=== PATIENT | male | born 1975 | race Caucasian/White ===

== ENCOUNTER 2018-05-27 23:17 | Emergency (ER) | payer OTHER ==
[~2018-05-27] VITALS: Ht 180.3 cm; Wt 80.2 kg
[2018-05-27] MEDS ORDERED: LIDOcaine Viscous 15ml cup MM PRN (23:30)
[2018-05-27] MEDS ORDERED: mag hydrox/Alum hydrox/simeth 30ml oral suspension PO ONE (23:30)
[2018-05-27] MEDS ORDERED: sucralfate 1gm/10ml UD suspension PO SCH (23:30)
[2018-05-27 23:54] LABS: BASOPHILS # (AUTO) 0.2 X10'3 (0-0.2); BASOPHILS % (AUTO) 1.6 % (0-1); EOSINOPHILS # (AUTO) 0.3 X10'3 (0-0.9); EOSINOPHILS % (AUTO) 2.8 % (0-6); HEMATOCRIT 47.9 % (42.0-52.0); HEMOGLOBIN 16.4 g/dl (14.0-17.9); LYMPHOCYTES % (AUTO) 25.2 % (21-51); MEAN CORPUSCULAR HEMOGLOBIN 31.4 PG (27.0-31.0); MEAN CORPUSCULAR HGB CONC 34.1 % (33.0-36.5); MEAN CORPUSCULAR VOLUME 92.2 FL (78-98); MEAN PLATELET VOLUME 7.4 FL (7.4-10.4); MONOCYTES # (AUTO) 0.6 X10'3 (0-0.9); MONOCYTES % (AUTO) 5.1 % (2-12); NEUTROPHILS # (AUTO) 7.8 X10'3 (1.8-7.7); NEUTROPHILS % (AUTO) 65.3 % (42-75); PLATELET COUNT 297 X10'3 (140-440); WHITE BLOOD COUNT 11.9 X10'3 (4.5-11.0)
[2018-05-28] MEDS ORDERED: FAMO20TA44 PO (00:02)
[2018-05-28] MEDS ORDERED: ONDA4TAB9 SL (00:02)
[2018-05-28] MEDS ORDERED: famotidine/PF 10 mg/ml inj IV ONE (00:05)
[2018-05-28] MEDS ORDERED: pantoprazole 40 MG vial IV ONE (00:05)
[2018-05-28 00:09] LABS: ALANINE AMINOTRANSFERASE 72 U/L (12-78); ALBUMIN 3.7 G/DL (3.4-5.0); ALBUMIN/GLOBULIN RATIO 1.1 (1.1-1.5); ALKALINE PHOSPHATASE 83 IU/L (46-116); ANION GAP 12 (8-16); ASPARTATE AMINO TRANSFERASE 27 U/L (10-37); BILIRUBIN,TOTAL 0.6 MG/DL (0.1-1.0); BLOOD UREA NITROGEN 15 MG/DL (7-18); BUN/CREATININE RATIO 13.4 (5.4-32.0); CALCIUM 9.1 MG/DL (8.5-10.1); CHLORIDE 102 MMOL/L (99-107); CREATININE 1.12 MG/DL (0.60-1.10); GLUCOSE 152 MG/DL (70-104); POTASSIUM 3.3 MMOL/L (3.5-5.1); SODIUM 140 MMOL/L (135-145); TOTAL PROTEIN 7.2 G/DL (6.4-8.2); eGFR 72 ML/MIN
[2018-05-28 00:44] LABS: H PYLORI ANTIBODY NEGATIVE (Neg)
[2018-05-28 01:00] VITALS: BP 113/80
== END 2018-05-28 01:02 | disposition home or self-care (01) ==
LOC: ER 23:18
DX: K21.9 Gastro-esophageal reflux disease without esophagitis (principal); R10.13 Epigastric pain; Z90.49 Acquired absence of other specified parts of digestive tract
CPT/HCPCS: 36415; 80053; 84484; 85025; 86677; 93005; 96374; 96375; 99285; C9113; J3490

== ENCOUNTER 2025-03-12 07:45 | Outpatient (CLI) | payer OTHER ==
[~2025-03-12 07:45] MED LIST: FAMO20TA44 PO
--- NOTE | 2025-03-12 18:23 | CARDIOLOGY REPORT ---
APPROVED REPORT EXAM: Comprehensive 2D, Doppler, and color-flow Echocardiogram. Patient Location: OUT-PATIENT Blood Pressure: 126/88 mmHg Heart Rate: 75 bpm Rhythm: SINUS Indications CORONARY ARTERY DISEASE PSVT, S/P ABLATION 1995 [employer] Med[employer]: none Previous echo: none 2D Dimensions RVDd 3.2 cm IVSd 0.8 (0.7-1.1cm) LVDd 4.5 cm PWd 0.9 (0.7-1.1cm) IVSs 1.5 (0.8-1.2cm) LVDs 2.9 (2.5-4.0cm) PWs 1.3 (0.8-1.2cm) LVOT Diameter 2.28 (1.8-2.4cm) LVEF(%) 60.0 (>50%) Ao Asc Diam.3.44 cm FS (%) 37.0 % SV 63.0 ml M-Mode Dimensions Left Atrium(MM) 3.66 (2.5-4.0cm) Aortic Root 3.47 (2.2-3.7cm) Aortic Cusp Exc 2.14 (1.5-2.0cm) Aortic Valve AoV Peak Parveen. 124.0 cm/s AoV VTI 26.7 cm AO Peak GR. 6.2 mmHg AO Mean GR. 4 mmHg LVOT VTI 20.51 cm LVOT Peak Parveen. 102.0 cm/s OREN (VMAX) 3.36 cm2 OREN (VTI) 3.14 cm2 Mitral Valve MV E Velocity 61.4 cm/s MV DECEL TIME 169 ms MV A Velocity 57.7 cm/s MV PHT 53 ms E/A Ratio 1.1 MVA (PHT) 4.16 cm2 TDI E/Medial E' 9.3 Tricuspid Valve TR P. Velocity 210 cm/s RAP ESTIMATE 10 mmHg TR Peak Gr. 18 mmHg RVSP 28 mmHg Pulmonary Vein S2 Velocity 58.93 cm/s PVa [id number] msec LEFT VENTRICLE Normal LV size and wall thickness. Overall systolic function is normal. LVEF is 55-60%. RIGHT VENTRICLE RV is normal size and function. ATRIA LA size is normal. RA size is normal. AORTIC VALVE Trileaflet AV appears mildly sclerotic without stenosis or insufficiency. MITRAL VALVE Mild MV annular calcification without stenosis. Trivial regurgitation. TRICUSPID VALVE TV appears structurally normal with trace regurgitation. PULMONIC VALVE Normal PV without stenosis or insufficiency. GREAT VESSELS Aortic root is normal in size. Ascending aorta is normal in size. PERICARDIUM Normal pericardium. No effusion. Other Information Study Quality: Adequate Conclusion Normal LV size and wall thickness. Overall systolic function is normal. LVEF is 55-60%. RV is normal size and function. LA size is normal. Trileaflet AV appears mildly sclerotic without stenosis or insufficiency. Mild MV annular calcification without stenosis. Trivial regurgitation. TV appears structurally normal with trace regurgitation. Normal pericardium. No effusion.
== END 2025-03-12 23:59 | disposition home or self-care (01) ==
LOC: CARD DIAG 07:45
PROVIDERS: ATTEND Chiropractor
DX: I08.0 Rheumatic disorders of both mitral and aortic valves (principal); I25.9 Chronic ischemic heart disease, unspecified
CPT/HCPCS: 93306